=== PATIENT | male | born 1950 | race Caucasian/White ===

== ENCOUNTER 2023-05-26 10:06 | Outpatient (CLI) | payer MEDICARE, SELFPAY ==
[2023-05-26 11:13] LABS: Alanine Aminotransferase 18 U/L (6-50); Albumin Level 4.4 g/dL (3.5-5.1); Alkaline Phosphatase 91 U/L (38-126); Amylase 48 U/L (30-110); Aspartate Amino Transferase 26 U/L (17-59); Bilirubin,Total 0.8 mg/dL (0.2-1.3); Lipase 130 U/L (23-300)
== END 2023-05-26 10:07 | disposition home or self-care (01) ==
LOC: ANHSURGERY 10:10
PROVIDERS: PCP Internal Medicine; Visit Provider Surgery
DX: Z01.818 Encounter for other preprocedural examination (principal); K80.10 Calculus of gallbladder with chronic cholecystitis without obstruction
CPT/HCPCS: 36415; 80076; 82150; 83690; 86850; 86900; 86901

== ENCOUNTER 2023-05-30 10:12 | Observation (INO) | payer MEDICARE, SELFPAY ==
[2023-05-24 14:24] VITALS: BMI 32.8
--- NOTE | 2023-05-24 14:25 | PC.NURSE ---
Report to the Outpatient Waiting Room, entrance under the green pavilion located off [facility], at time _0700_ on date _[id number]_. Planned Procedure Time: _0900_. Time changes happen often and if your time is changed the preop area will call you the afternoon before. - You and your visitor will be asked to self-screen and do not enter if you have any COVID symptoms. - A mask is optional within the hospital at this time. Patients may have clear liquids (water, carbonated beverages, clear teas, apple juice) until 3 hours prior to surgery with a maximum of 20 ounces. - No food from midnight until time of surgery Take the following medications with a SIP of water the morning of surgery: __Amlodipine DO NOT STOP ANY OF YOUR OTHER PRESCRIPTION MEDICATIONS PRIOR TO SURGERY ?EXCEPT THE FOLLOWING Medications to discontinue per physician Xarelto____ Date to take last fovk____[phone] Please no make-up, nail palestinian, hairspray, perfume, deodorant, or body powder the day of surgery. No jewelry (including any body piercings) or valuables the day of surgery, leave them at home. Please take a shower or bath the night before, or the morning of, surgery with an Hebiclense, an antibacterial soap. Wear comfortable, loose fitting clothing. - Jewelry must be removed prior to entering the operating room. Rings and piercings that are not removed may be cut off. - The hospital will not accept responsibility for valuables. - Please leave all valuables, including medications, at home the day of surgery. If you are going home after surgery, a licensed transit mixer driver must drive you home. - NO public transportation without another adult if you receive anesthesia. - We recommend that an adult stay with you for 24 hours following discharge. - We also recommend that you do not drive, make important decision, drink alcoholic beverages, or take any drugs that were not prescribed by your health care provider for at least 24 hours after your discharge time. Follow any additional instructions given to you from your surgeon. If you or anyone in your household have experienced Covid symptoms in the past week, please notify your surgeon or the nurse liaison at the phone number below for possible testing. Telephone instructions given to _Thelma and Luis Eduardo_and asked if any additional questions and then verbalized understanding. Patient advised to call surgeon office or pre surgery nurse liaison [phone] if any additional questions.
[2023-05-30] VITALS (15 sets, daily range): BP systolic 108–142; BP diastolic 55–98; PULSE 84–101; RESP 14–19; TEMP 36.3–36.9; O2SAT 93–100
[2023-05-30] MEDS: ACETAMINOPHEN 500 MG TABLET 1000 MG PO (07:20)
--- NOTE | 2023-05-30 07:26 | WPDHPUPDATE1 ---
History and Physical Update Update Date/Time: 05/30/23 07:26 History and Physical has been reviewed, including an updated exam of the patient. There are NO changes in the patient's condition. Risks, benefits, and alternatives have been discussed and questions answered. Patient agrees to proceed with procedure.
[2023-05-30] MEDS: LACTATED RINGERS 1,000 ML 30 ML IV CONT ×3 (07:31→10:15)
[2023-05-30] MEDS: KETOROLAC 15 MG/ML VIAL (*BKC) IV PUSH (07:33)
--- NOTE | 2023-05-30 07:47 | WPDANESEPPF ---
Anes - Initial Pre Proc Eval Procedure: Operation Date: 05/30/23 09:00 Proposed Procedures p Laparoscopic Cholecystectomy - Nelida Davis MD Date/Time: 05/30/23 07:47 Surgeon: Nelida Davis MD Pre Op Diagnosis: Chr Calculous Cholecystitis Patient Data Age: 73 Gender: M Height: 1.78 m Weight: 102.4 kg Last Vital Signs Temp 98.3 F 05/30/23 07:37 Pulse 101 H 05/30/23 07:37 Resp 18 05/30/23 07:37 BP 131/79 05/30/23 07:37 Pulse Ox 95 05/30/23 07:37 O2 Del Method Room Air 05/30/23 07:37 Allergies Allergy/AdvReac Type Severity Reaction Status Date / Time No Known Allergies Allergy Verified 05/30/23 07:05 Home Medications Medication Instructions Recorded Confirmed Type amlodipine 10 mg tablet (Norvasc) 10 mg PO DAILY 05/02/23 05/24/23 History hydrochlorothiazide 12.5 mg capsule 12.5 mg PO DAILY 05/02/23 05/24/23 History rivaroxaban 20 mg tablet (Xarelto) 20 mg PO DAILY 05/02/23 05/24/23 History simvastatin 20 mg tablet (Zocor) 20 mg PO DAILY 05/02/23 05/24/23 History Patient hx anesthesia problems: none Family hx anesthesia problems: none Results Review: All pre-operative results and documents have been reviewed as part of the pre-operative evaluation. [facility] Past Medical History Medical History Abnormal biliary HIDA scan Cholelithiasis Colicky RUQ abdominal pain History of pulmonary embolus (PE) Hx of adenomatous polyp of colon Surgical History Surgical History History of colonoscopy 2013 Dr. Zazueta History of left knee replacement S/P IVC filter Family History Family History Father Lung cancer Mother ASHD (arteriosclerotic heart disease) Social History Social History Smoking status: Never smoker Alcohol intake: unknown Substance use: never Living arrangements: with family Occupation/Education: retired Spiritual care concerns: No Anes - Eval Final PreProcedure Day of Procedure 05/30/23 07:47 Patient weight: normal Heart: irregular rhythm Lungs: clear to auscultation Airway: Mallampati scale class II Neurological: alert and oriented Last oral intake: >/= 8 hours ASA classification: III Emergent: no Anesthetic plan: proceed Anesthesia type and monitoring: general ETT and standard monitoring Results Review: All pre-operative results and documents have been reviewed as part of the pre-operative evaluation. Informed Consent: The patient's anesthetic plan and its attendant risks and benefits were discussed with the patient/family/POA. Questions were solicited and answers provided to the satisfaction of the patient/family/POA.
[2023-05-30] MEDS: ceFAZolin 2 GM/D5W 50 ML 2 GM/50 ML BAG IVPB ×2 (08:39→17:22)
[2023-05-30] MEDS: BUPIVACAINE/EPINEPHRINE 0.5% 50 ML VIAL 30 ML INFILTRATE (09:03)
--- NOTE | 2023-05-30 10:16 | W.PM.PROC2 ---
Procedure Note - Detailed Date of Procedure 05/30/23 Pre-op Diagnosis Acute cholecystitis, cholelithiasis Post-op Diagnosis Other ( acute suppurative cholecystitis) Procedure Performed laparoscopic cholecystectomy difficult secondary to degree of inflammation, distension, intrahepatic gallbladder Surgeon Nelida Davis MD Anesthesia General Indications 73 year old male presenting to the office complaining of severe upper abdominal pain over the last month or so. Workup including imaging, significant for acute cholecystitis, cholelithiasis. Findings Severe acute suppurative cholecystitis with impacted stone at neck of gallbladder Description of Procedure The patient was taken to the operating room placed in the supine position. After adequate induction of general anesthesia, the patient was prepped and draped in normal sterile fashion. A time-out was then performed to verify the patient's identity as well as the procedure being performed. I then made a 5 mm incision in the infraumbilical region. Through this, a Veress needle was placed into the peritoneal cavity and CO2 gas was then insufflated. After adequate pneumoperitoneum was achieved, the Veress needle was removed and a 5 mm optiview trocar was placed through this incision under direct visualization. I then placed the laparoscope through this trocar site and under direct visualization placed a further 12 mm subxiphoid port as well as 2 additional 5 mm ports in the right upper abdomen. The gallbladder was then identified and was noted to be severely inflamed, distended, and full of gallstones. Given the amount of inflammation and distention, the gallbladder was 1st decompressed to allow manipulation. Upon decompression, it was noted the patient had a empyema of the gallbladder with a large amount of purulent drainage. There was also noted to be innumerable small stones, sludge. Once decompressed, I was able to place a grasper at the dome of the gallbladder and this was retracted anterior and cephalad up over the liver. A 2nd retractor was then placed at the infundibulum and retracted laterally, this allowed visualization of the triangle of Calot. I then was able to visualize the cystic duct in its entirety from its proximal insertion into the gallbladder, to its distal junction with the common hepatic/common bile duct junction. At this point, I carefully skeletonized the proximal cystic duct with the [place] dissector. I then clipped and transected the proximal cystic duct. Next I visualized the cystic artery. Again the artery was skeletonized, clipped, and transected. I then used the Bovie cautery to take down the peritoneal attachments of the gallbladder off the liver bed. This was difficult given the amount of inflammation in the posterior space. Also noted, the gallbladder was very intrahepatic and there was really no plane between the gallbladder. Once the gallbladder specimen was completely detached, an endo-pouch was placed through the 12 mm port site. I then placed the gallbladder specimen into the Endo pouch and removed the endo-pouch from the 12 mm port site. The specimen will now be sent to pathology for further review. I then copiously irrigated the right upper quadrant. Some mild oozing was noted in the liver bed and this was controlled with the bovie cautery. I then placed some hemostatic powder in the liver bed. Hemostasis was noted in the liver bed, the clips were noted to be in good position on both the cystic duct stump and the cystic artery stump. No other pathology was noted in the right upper quadrant. Given the amount of purulent drainage and inflammation, I left a 19 [place] SKYLER drain in the right upper quadrant coming out through the most lateral 5 mm port. I then moved the laparoscope to the subxiphoid port. No iatrogenic injury or other pathology was noted in the lower abdomen. I then closed the 12 mm trocar site under direct visualization using the David cone
[2023-05-30] MEDS: fentaNYL CITRATE INJ (*CRX) 100 MCG/2 ML VIAL 25 MCG IV PUSH (10:59)
[2023-05-30] MEDS: LACTATED RINGERS 1,000 ML 100 ML IV CONT (12:32)
--- NOTE | 2023-05-30 13:27 | ADMGEN ---
This patient, Ward Fish, was admitted to Medical Room 261-01. Patient/family oriented to hospital policies and general routines including ID bracelet, bed and alarms, visiting hours, pain management, procedures, bathroom and other care routines, personal items, smoking policy, room service/diet, and visiting hours. Information on how to activate the Rapid Response Team has been discussed. Patient/Family are encouraged to report perceived risks to care and to ask questions if they do not understand what they are told or what they should do.
[2023-05-30] MEDS: HYDROcodone/acetaminophen (*CRX) 5-325 MG TABLET 1 TAB PO ×3 (14:08→22:35)
[2023-05-31] MEDS: ceFAZolin 2 GM/D5W 50 ML 2 GM/50 ML BAG IVPB ×2 (00:02→09:57)
[2023-05-31 03:00] VITALS: BP 136/81; PULSE 81; RESP 14; TEMP 36.8; O2SAT 95
[2023-05-31] MEDS: HYDROcodone/acetaminophen (*CRX) 5-325 MG TABLET 1 TAB PO ×3 (03:03→11:17)
[2023-05-31 06:11] LABS: Hematocrit 40.9 % (42.0-52.0); Hemoglobin 13.3 g/dL (14.0-18.0); Mean Corpuscular HGB Conc 32.5 g/dl (32-36); Mean Corpuscular Hemoglobin 31.8 pg (26-34); Mean Corpuscular Volume 97.8 fl (80-100); Mean Platelet Volume 10.1 fl (7.4-10.4); Platelet Count Result 209 k/mm3 (150-375); Red Blood Count 4.18 M/mm3 (4.6-6.20); Red Cell Distribution Width 13.4 % (11.5-14.5)
[2023-05-31 06:23] LABS: Alanine Aminotransferase 38 U/L (6-50); Albumin Level 3.9 g/dL (3.5-5.1); Alkaline Phosphatase 76 U/L (38-126); Anion Gap 4 mmol/L (8-16); Aspartate Amino Transferase 68 U/L (17-59); Bilirubin,Total 0.8 mg/dL (0.2-1.3); Blood Urea Nitrogen 12 mg/dL (9-20); Calcium 8.8 mg/dL (8.4-10.2); Carbon Dioxide 32 mmol/L (22-30); Chloride 100 mmol/L (98-107); Estimated CRCL calculation 108 ml/min; Estimated Glomerular Filt Rate > 60; Glucose 110 mg/dL (65-110); Potassium 4.1 mmol/L (3.4-5.0); Sodium 136 mmol/L (137-145)
[2023-05-31 09:00] VITALS: BP 124/66; PULSE 85; RESP 18; TEMP 36.4; O2SAT 96
[2023-05-31] MEDS: amLODIPine BESYLATE 5 MG TABLET 10 MG PO (09:56)
[2023-05-31] MEDS: SIMVASTATIN 20 MG TABLET PO (09:56)
[2023-05-31] MEDS: hydroCHLOROthiazide 12.5 MG CAPSULE PO (09:57)
[2023-05-31] MEDS: ENOXAPARIN 40 MG/0.4 ML SYRINGE SUB-Q (09:57)
--- NOTE | 2023-05-31 12:42 | PM.DS ---
DS: Admitting Diagnosis Discharge Date 05/31/23 Admitting Diagnosis Acute calculous cholecystitis DS: Discharge Diagnosis Discharge Diagnosis (1) Acute suppurative cholecystitis: Code(s): K81.0 - Acute cholecystitis Status: Acute DS: Summary Hospital Course Reason for hospitalization: This is a 73 year old man who was referred to our service as an outpatient for RUQ abdominal pain and bloating x 3-[address] scan of the abdomen and pelvis without contrast was done on 04/05/23 and showed normal liver but did show distended gallbladder with a 15 mm gallstone, negative for wall thickening or pericholecystic fluid with no evidence of choledocholithiasis the pancreas was normal. HIDA scan without pharm was completed 04/12/23 due to the abnormality on the CT-> the gallbladder was not visualized, acute cholecystitis not excluded and no evidence of common bile duct dilation-CCK was not given to the lack of gallbladder visualization. Decision was made to proceed with a laparoscopic cholecystectomy and surgery was scheduled on 05/30/23. Hospital Course: During surgery, he was found to have acute suppurative cholecystitis with severe inflammation and an impacted gallstone in the neck of the gallbladder. A SKYLER drain was placed during surgery. He was admitted to the medical floor. He was continued on IV Ancef until this morning. His diet has been advanced to a heart healthy diet. His Xarelto was held pre-operatively and is still on hold today. He is tolerating a diet postop day 1. Postop incisional soreness is well controlled with oral analgesics. He is tolerating activity. Discussed with Dr. Davis and the patient is stable for discharge today. He will transition to oral antibiotics for another 7 days and be discharged with his SKYLER drain. Will have him follow-up next week for possible drain removal. Status at Discharge Functional status at discharge: independent ambulation Overall status at discharge: patient is progressing back to baseline Time Spent with Patient Time attestation: Total time spent providing and/or coordinating discharge services: Time spent: Less than 30 minutes Exam Const: General: comfortable, no acute distress and awake Orientation/consciousness: patient oriented x3 Resp: Effort & Inspection: normal respiratory effort Auscultation: clear to auscultation bilaterally Cardio: Rate: regular rate Rhythm: regular rhythm GI: Inspection: non-distended, incision (incisions dry and intact) and other (RUQ SKYLER with serosanguineous drainage) GI Palp: Yes Soft to palpation and Yes Tenderness to palpation present (GI) (incisional) Auscultation: normal bowel sounds Neuro: General: moves all extremities and no focal motor deficits Extrem: General: no calf tenderness and no edema Psych: Mental Status: mental status grossly normal Insight: Good insight present (Psych) DS: Data Data Completed and Pending Pending studies at discharge: Pending at discharge 05/30/23 08:56 Surgical [PTH] Routine Labs on day of discharge: Labs from last 24 hours 05/31/23 05:53 WBC 14.0 H RBC 4.18 L Hgb 13.3 L Hct 40.9 L MCV 97.8 MCH 31.8 MCHC 32.5 RDW 13.4 Plt Count 209 MPV 10.1 Sodium 136 L Potassium 4.1 Chloride 100 Carbon Dioxide 32 H Anion Gap 4 L BUN 12 Creatinine 0.60 L Estim Creat Clear Calc 108 Estimated GFR > 60 Glucose 110 Calcium 8.8 Total Bilirubin 0.8 AST 68 H ALT 38 Alkaline Phosphatase 76 Total Protein 7.0 Albumin 3.9 Procedures/Treatments: Procedures Operation Date: 05/30/23 09:00 Actual Procedure Side Surgeon p Laparoscopic Cholecystectomy Not Applicable Nelida Davis MD Discharge Plan Discharge Attending physician on discharge: Nelida Davis Discharging Clinician: Rhona Acuña Anticipated Discharge Date/Time: 05/31/23 12:51 Patient Disposition: Home, Self-Care Activity: other - see discharge instructions Diet: heart health
== END 2023-05-31 14:00 | disposition home or self-care (01) ==
LOC: ANH2MED 12:08
PROVIDERS: Admitting Provider Surgery; PCP Internal Medicine; Visit Provider Surgery
PROC: 0FT44ZZ Resection of Gallbladder, Percutaneous Endoscopic Approach (ICD-10-PCS; CPT 47562; principal; 2023-05-30 09:00)
DX: C23 Malignant neoplasm of gallbladder (principal); K80.10 Calculus of gallbladder with chronic cholecystitis without obstruction; R12 Heartburn; I10 Essential (primary) hypertension; Z79.01 Long term (current) use of anticoagulants; Z86.711 Personal history of pulmonary embolism; Z80.1 Family history of malignant neoplasm of trachea, bronchus and lung; Z79.02 Long term (current) use of antithrombotics/antiplatelets; Z79.899 Other long term (current) drug therapy
CPT/HCPCS: 47562; 36415; 80053; 80076; 82150; 83690; 85027; 86850; 86900; 86901; 88304; A9270; G0378; G0379; J0690; J1100; J1650; J1885; J2405; J2704; J3010; J7030; J7120